=== PATIENT | male | born 1985 | race Two or more races ===

== ENCOUNTER 2024-12-08 05:48 | Emergency (ER) | payer OTHER ==
[~2024-12-08] VITALS: Ht 167.6 cm; Wt 81.5 kg
[2024-12-08] MEDS: IBUPROFEN 600MG TAB PO ONE (08:14)
[2024-12-08 08:18] LABS: KETONE, URINE AUTO RFX NEGATIVE (NEGATIVE); LEUKOCYTE ESTERASE UR AUTO RFX NEGATIVE (NEGATIVE); NITRITE, URINE AUTO RFX NEGATIVE (NEGATIVE); RBC, URINE AUTO RFX 1 /HPF (0-3); SQUAM EPITHELIAL CELL UR AURFX 0 /HPF (0-6); WBC, URINE AUTO RFX 0 /HPF (0-3)
[2024-12-08 09:00] VITALS: BP 117/72; TEMP 97.4; O2SAT 99
[2024-12-08 09:57] LABS: Trichomonas vaginalis (AMP) NOT DETECTED (NEGATIVE)
[2024-12-08 10:20] LABS: GC DNA AMPLIFICATION NEGATIVE (NEGATIVE)
== END 2024-12-08 09:03 | disposition home or self-care (01) ==
LOC: M ED 05:48
DX: I86.1 Scrotal varices (principal); F17.210 Nicotine dependence, cigarettes, uncomplicated